=== PATIENT | male | born 1960 | race Caucasian/White ===

== ENCOUNTER 2023-04-11 12:57 | Outpatient (CLI) | payer OTHER | END 2023-04-11 13:01 | disposition home or self-care (01) | LOC: SONOGRAMA 12:57 | PROVIDERS: ATTEND Internal Medicine | DX: R10.9 Unspecified abdominal pain (principal); M15.0 Primary generalized (osteo)arthritis; M75.21 Bicipital tendinitis, right shoulder ==

== ENCOUNTER 2023-05-07 10:38 | Outpatient (CLI) | payer OTHER | END 2023-05-07 10:45 | disposition home or self-care (01) | LOC: SONOGRAMA 10:38 | PROVIDERS: ATTEND Urology | DX: N20.0 Calculus of kidney (principal) ==

== ENCOUNTER 2024-09-28 11:13 | Outpatient (CLI) | payer OTHER | END 2024-09-28 11:18 | disposition home or self-care (01) | LOC: RAD 11:13 | PROVIDERS: ATTEND Urology | DX: N40.1 Benign prostatic hyperplasia with lower urinary tract symptoms (principal) ==